=== PATIENT | female | born 1975 | race Caucasian/White ===

== ENCOUNTER → 2021-03-27 | Outpatient (CLI) | payer BC ==
[~2021-03-27] MED LIST: CATHETER FLUSH 10 ML SYR IV PRN; FOLI1TAB57 PO; HYDR-3817 PO; LEVO100C4 PO; PROP20TA5 PO
--- NOTE | 2021-03-27 16:33 | Diagnostic Imaging Report ---
INDICATION: Pain. TECHNIQUE: The patient received 5.2 mCi technetium 99m Choletec. After confirmation of activity within the bile ducts, the proximal bowel as well as the gallbladder, the patient underwent gallbladder stimulation by ingesting fatty meal with Ensure and gallbladder ejection fraction quantified, FINDINGS: There is normal homogenous uptake through the liver parenchyma. Activity can be seen within the gallbladder as well as bile ducts within 20 minutes time. With gallbladder stimulation there was no reported pain with ejection fraction of 24%. IMPRESSION: 1. 24% ejection fraction is below the lower limits of normal for Ensure stimulation. No painful response to the fatty meal ingestion and no evidence for cystic or common duct obstruction. Dictated by: Dictated on workstation # [id number]
== END ==
LOC: CARD 13:19
PROVIDERS: ATTEND Surgery
DX: R10.11 Right upper quadrant pain (principal); R11.2 Nausea with vomiting, unspecified
CPT/HCPCS: 78227; A9537

== ENCOUNTER 2021-03-28 09:25 | Day surgery (SDC) | payer BC ==
[2021-03-28] VITALS (12 sets, daily range): BP systolic 123–148; BP diastolic 69–92
[~2021-03-28] VITALS: Ht 170.2 cm; Wt 97.8 kg
[2021-03-28] MEDS ORDERED: LIDOCAINE/EPI 1%-1:200,000 (XYLOCAINE) 30 ML VIAL ONE (09:32)
[2021-03-28] MEDS: LACTATED RINGERS 1,000 ML IV PRN ×2 (09:55→11:52)
[2021-03-28] MEDS ORDERED: ONDANSETRON 4 MG/2 ML (SDV) Z0FRAN ONE ×2 (09:59→10:32)
[2021-03-28] MEDS ORDERED: ceFAZolin 2 GM IV Premixed 50 ML ONE (10:00)
[2021-03-28] MEDS ORDERED: ceFAZolin 2 GM IV Premixed 50 ML IV ONE (10:00)
[2021-03-28] MEDS ORDERED: LACTATED RINGERS 1,000 ML IV PRN (10:00)
[2021-03-28] MEDS ORDERED: SCOPOLAMINE 1.5 MG (TRANSDERM-SCOP) PATCH ONE (10:07)
[2021-03-28] MEDS ORDERED: LEVO100C4 PO (10:27)
[2021-03-28] MEDS ORDERED: PROP20TA5 PO (10:27)
[2021-03-28] MEDS ORDERED: FOLI1TAB57 PO (10:27)
[2021-03-28] MEDS ORDERED: ONDANSETRON 4 MG/2 ML (SDV) Z0FRAN IVP ONE (10:30)
[2021-03-28] MEDS ORDERED: SCOPOLAMINE 1.5 MG (TRANSDERM-SCOP) PATCH TD ONE (10:30)
[2021-03-28] MEDS ORDERED: FAMOTIDINE 20MG/2ML IV (PEPCID) ONE (10:30)
[2021-03-28] MEDS ORDERED: fentaNYL INJ 100 MCG/2 ML AMP ONE (10:32)
[2021-03-28] MEDS ORDERED: LIDOCAINE PF 2% 5 ML (XYLOCAINE) VIAL ONE (10:32)
[2021-03-28] MEDS ORDERED: NEOSTIGMINE 3 MG/3 ML VIAL ONE (10:32)
[2021-03-28] MEDS ORDERED: MIDAZOLAM 2 MG/2 ML (VERSED) VIAL ONE (10:32)
[2021-03-28] MEDS ORDERED: GLYCOPYRROLATE 0.2 MG/ML (ROBINUL) 2 ML VIAL ONE (10:32)
[2021-03-28] MEDS ORDERED: ROCURONIUM 50 MG/5 ML (ZEMURON) VIAL IV ONE (10:32)
[2021-03-28] MEDS ORDERED: proPOfol 200 MG/20 ML (DIPRIVAN) VIAL IV ONE (10:32)
--- NOTE | 2021-03-28 10:50 | Progress Note-Pre Operative ---
Pre-Operative Progress Note H&P Reviewed The H&P was reviewed, patient examined and no changes noted. Date Seen by Provider: Mar 28, 2021 Time Seen by Provider: 10:00 Date H&P Reviewed: Mar 28, 2021 Time H&P Reviewed: 10:00 Pre-Operative Diagnosis: sx biliary dyskinesia SHAINA MALDONADO MD Mar 28, 2021 10:50
[2021-03-28] MEDS ORDERED: HYDR-3817 PO (10:51)
--- NOTE | 2021-03-28 10:52 | Discharge Inst-Surgical ---
D/C Lap Instructions-JOEL New, Converted, or Re-Newed RX: RX on Chart Follow Up Appt in 2 weeks Activity as tolerated No driving for 24 hours No driving while on pain medications Incentive Spirometry use every 2 hours while awake Regular Diet Symptoms to Report: Fever over 101 degree F, Nausea/Vomiting Infection Signs and Symptoms to report: Increased redness, Foul odor of wound, Increased drainage Bathing instructions: May shower Operative Area Clean/Dry; Keep incision clean/dry If any problems/questions: Contact your physician or go to Emergency Room SHAINA MALDONADO MD Mar 28, 2021 10:52
[2021-03-28] MEDS ORDERED: ACETAMINOPHEN 325 MG TABLET PO PRN (11:00)
[2021-03-28] MEDS ORDERED: HYDROcodone/APAP 5 MG/325 MG (LORTAB) TAB PO ONE (11:00)
[2021-03-28] MEDS ORDERED: morphine INJ 10 MG/ML 1ML (SYR OR VIAL) IVP PRN ×2 (11:00)
[2021-03-28] MEDS ORDERED: ONDANSETRON 4 MG/2 ML (SDV) Z0FRAN IVP PRN ×2 (11:00→12:30)
[2021-03-28] MEDS ORDERED: SEVOFLURANE (ULTANE) 15 ML INHAL SOLN ONE (11:05)
[2021-03-28] MEDS ORDERED: KETOROLAC 30 MG/ML VIAL ONE (12:02)
--- NOTE | 2021-03-28 12:09 | Progress Note-Post Operative ---
Post-Operative Progess Note Surgeon (s)/Retail Link Analyst (s) Surgeon SHAINA MALDONADO MD Retail Link Analyst: valdemar aragon APRN Pre-Operative Diagnosis sx biliary dyskinesia Post-Operative Diagnosis same Procedure & Operative Findings Date of Procedure 03/28/21 Procedure Performed/Findings laparoscopic cholecystectomy Anesthesia Type get Estimated Blood Loss Estimated blood loss (mL): minimal Specimens/Packing Specimens Removed gallbladder SHAINA MALDONADO MD Mar 28, 2021 12:09
[2021-03-28] MEDS ORDERED: HYDROmorphone 2 MG/ML VIAL (DILAUDID) IV ONE (12:30)
[2021-03-28] MEDS ORDERED: HYDROmorphone 2 MG/ML VIAL (DILAUDID) ONE (12:37)
--- NOTE | 2021-03-28 12:46 | Anesthesia-General Post-Op ---
General Patient Condition Mental Status/LOC: Same as Preop Cardiovascular: Satisfactory Nausea/Vomiting: Absent Respiratory: Satisfactory Pain: Controlled Complications: Absent Post Op Complications Complications None Follow Up Care/Instructions Patient Instructions None needed. Anesthesia/Patient Condition Patient Condition Patient is doing well, no complaints, stable vital signs, no apparent adverse anesthesia problems. No complications reported per nursing. D/C home per [facility] Criteria: Yes NUNU CHEUNG CRNA Mar 28, 2021 12:46
[2021-03-28] MEDS ORDERED: HYDROcodone/APAP 5 MG/325 MG (LORTAB) TAB ONE (13:58)
--- NOTE | 2021-03-28 18:05 | OPERATIVE REPORT ---
DATE OF SERVICE: 03/28/2021 ATTENDING PRIMARY CARE PHYSICIAN: Annelise Brock MD. PREOPERATIVE DIAGNOSIS: Symptomatic biliary dyskinesia. POSTOPERATIVE DIAGNOSIS: Symptomatic biliary dyskinesia. PROCEDURE PERFORMED: Laparoscopic cholecystectomy. SURGEON: Shaina Maldonado MD. ORTHOPEDIC ASSISTANT: Nirmala Woodard APRN. ANESTHESIA: General endotracheal. ESTIMATED BLOOD LOSS: Minimal. FINDINGS: Distended gallbladder with omental adhesions towards the gallbladder, no gallstones. DISPOSITION: The patient tolerated the procedure well. INDICATIONS FOR PROCEDURE: The patient is a 46-year-old female known to us. We had initially seen her for nausea and vomiting as well as pain in the right upper abdominal quadrant after eating pizza. She was seen in the Emergency Department and a CT scan was performed, which showed a nonobstructing bilateral renal calculi and no other abnormalities. She was then seen in the office and we proceeded with workup and ultrasound did not show any gallstones; however, HIDA scan did show a low ejection fraction in the low 20s as well as reproduction of symptoms upon administration of the Kinevac analogue consistent with symptomatic biliary dyskinesia. DESCRIPTION OF PROCEDURE: The patient was brought to the operating room and laid supine on the table. After adequate IV pain and sedative medications and general endotracheal intubation, the abdomen was prepped and draped in a standard surgical fashion. A 0.5% Marcaine with epinephrine was then used to anesthetize the overlying skin in the left upper abdominal quadrant and transverse skin incision was made using a 15 blade. A 0 silk suture was applied to the medial aspect of the incision for retraction and a Veress needle inserted with a low opening pressure of 0 mmHg. The abdomen was then insufflated to 15 mmHg pressure. The Veress needle was removed and a 5 mm XL trocar was placed followed by a 5 mm 45-degree angle laparoscope visualizing the peritoneal cavity. A four-quadrant abdominal exploration was performed. There was a distended gallbladder. There was no gallbladder wall thickening. There were omental adhesions towards the fundus of the gallbladder. Under direct visualization, we then proceeded to place a supraumbilical 10 mm port after the skin and peritoneal lining were anesthetized using 0.5% Marcaine with epinephrine and a transverse skin incision was made using a 15 blade. In a similar manner, a right upper abdominal quadrant 5 mm port was placed. The patient was then placed in a reverse Trendelenburg position as well as plane right side up, left side down. The omental adhesions were then taken down using blunt dissection as well as electrocautery on the hook instrument. The hepatoduodenal ligament was then dissected open using blunt dissection as well as electrocautery on the hook instrument as well as a [place] dissector. The entire critical view of safety was identified including the cystic duct and artery as the only two structures going into the gallbladder as well as the cystic plate behind the proximal gallbladder. A timeout was then taken and the cystic duct and artery were then clipped proximally and distally and cut with EndoShears. The gallbladder was then dissected off the liver bed using cautery on the hook instrument with visualization of good hemostasis as well as no leaking ducts of Luschka. The gallbladder was removed through the 10 mm port site using an EndoCatch bag. The 10 mm port site fascia and peritoneum were then closed under direct visualization using a Adolfo-Brian device and a 0 Vicryl suture. The abdomen was then desufflated and remaining ports were removed. All skin incisions were closed using 4-0 Monocryl running subcuticular sutures. Wounds were then cleaned and covered with Dermabond. The patient tolerated the procedure well. We will start IV normal pain medication as well as a clear liquid diet. When she is tolerating clears, has good pain control with oral pain medications, and is ambulating well, we will discharge her home. She will be instructed to do no heavy lifting or exertion for the next two weeks. 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
== END 2021-03-28 14:30 | disposition home or self-care (01) ==
LOC: SDC 09:25
PROVIDERS: ATTEND Surgery
DX: K82.8 Other specified diseases of gallbladder (principal); K81.1 Chronic cholecystitis; E06.3 Autoimmune thyroiditis; K21.9 Gastro-esophageal reflux disease without esophagitis; I49.9 Cardiac arrhythmia, unspecified; Z79.899 Other long term (current) drug therapy; Z79.890 Hormone replacement therapy; Z88.5 Allergy status to narcotic agent; Z88.6 Allergy status to analgesic agent
CPT/HCPCS: 84703; 87081; 88304